=== PATIENT | male | born 1965 | race Caucasian/White ===

== ENCOUNTER 2019-02-19 10:03 | Inpatient (IN) | payer OTHER ==
[~2019-02-19] VITALS: Ht 175.3 cm; Wt 101.7 kg
[2019-02-19 10:09] VITALS: BP 173/100
[2019-02-19] MEDS ORDERED: LISINOPRIL5 MG PO (10:20)
[2019-02-19] MEDS ORDERED: SYNTHROID100 MC1 PO (10:21)
[2019-02-19 10:41] LABS: ABSOLUTE BASOPHILS 0.1 thou/uL (0.0-0.2); ABSOLUTE EOSINOPHILS 0.2 thou/uL (0.0-0.7); ABSOLUTE LYMPHOCYTES 2.2 thou/uL (0.8-5.3); ABSOLUTE MONOCYTES 0.5 thou/uL (0.0-1.2); ABSOLUTE NEUTROPHILS 3.6 thou/uL (1.6-8.1); EOSINOPHILS 2.5 %; HEMOGLOBIN 15.9 gm/dL (14.0-18.0); LYMPHOCYTES 33.1 %; MCH 31.4 pg (26.0-34.0); MCHC 34.6 g/dL (28.0-37.0); MCV 90.9 fL (80.0-100.0); MONOCYTES 8.1 %; NUCLEATED RBCS 0 /100WBC; PLATELET COUNT* 212 thou/uL (150-400); POLYS 55.3 %; RBC 5.07 mil/uL (4.50-6.00); RDW-CV 12.9 % (10.5-14.5); WBC 6.5 thou/uL (4.0-11.0)
[2019-02-19 10:50] LABS: ANION GAP 8 mmol/L (7-16); BUN 14 mg/dL (7-18); CALCIUM 8.9 mg/dL (8.5-10.1); CHLORIDE 104 mmol/L (98-107); CO2 27 mmol/L (21-32); CREATININE 0.9 mg/dL (0.6-1.3); GLUCOSE 121 mg/dL (70-99); POTASSIUM 4.2 mmol/L (3.5-5.1); SODIUM 139 mmol/L (136-145)
[2019-02-19 11:03] LABS: ALKALINE PHOSPHATASE 69 U/L (46-116); LIPASE 115 U/L (73-393); MAGNESIUM 1.9 mg/dL (1.8-2.4); NT-PRO BRAIN NAT PEPTIDE 7 pg/mL (<300); SGOT 30 U/L (15-37); SGPT 58 U/L (30-65); TOTAL BILIRUBIN 0.4 mg/dL (<0.1-1.0); TOTAL PROTEIN 7.8 g/dL (6.4-8.2); TROPONIN-I LEVEL <0.06 ng/mL (<0.06)
[2019-02-19 11:59] VITALS: BP 143/79
[2019-02-19 13:00] VITALS: BP 152/73
[2019-02-19 15:32] VITALS: BP 133/78
--- NOTE | 2019-02-19 18:01 | NUR ---
0ASSUMED PATIENT CARE AT APPROXIMATELY 1200. ASSESSMENT CHARTED COMPLETED. NSR ON MONITOR. VSS. CLWR. HOURLY ROUNDING IN PLACE FOR PATIENT SAFETY.
--- NOTE | 2019-02-19 18:51 | NUR ---
PATIENT LEFT AMA. DOCTOR NOTIFIED. PATIENT EDUCATED ABOUT RISKS OF LEAVING AMA AND VERBALIZED UNDERSTANDING.
--- NOTE | 2019-02-20 10:14 | CON ---
[address] [address] CONSULTATION Name: MIKELREJICARLITOAB Juany Room: [address] IN .R.#: [id number] Admission: 02/19/19 Attend Phys: Carmel Kelley MD Discharge: 02/19/19 Date of : 69 Report #: [id number] THIS REPORT FOR: //name// CC: MD Carmel Holcomb DATE OF SERVICE: 02/19/2019 INDICATION: Back pain, palpitations and dizziness. HISTORY OF PRESENT ILLNESS: The patient is a 53-year-old gentleman with hypertension, mild dyslipidemia and hypothyroidism who was admitted through the Emergency Room this morning with an episode while walking, described as onset of anxiety, followed with pain between the shoulder blades, radiating to his head followed by a feeling of his heart racing and diaphoresis. Symptoms resolved with bending over and taking deep breaths. The whole episode lasted a minute or so. Once the patient had resolution of symptoms, he walked another 50 feet with recurrence of symptoms. He again bent over and did some more deep breathing, at which time his picked him up in the car and brought him into the Emergency Room. He has had 3 or 4 episodes like this in the past 15 years. A recent cardio scan at [facility] was scored as 7, putting him at low risk for future cardiac events in the next 10 years. He is not having elaina chest pain. His EKG was unremarkable. Initial troponin was less than 0.06. At the time of interview, he is symptom free. PAST MEDICAL HISTORY: 1. Hypertension. 2. Hyperlipidemia. 3. Hypothyroidism. PAST SURGICAL HISTORY: None. FAMILY HISTORY: No history of coronary artery disease on the mother's side of the family. The father's side is unknown. SOCIAL HISTORY: The patient is . He does not smoke. He drinks 1-2 drinks a day. CURRENT MEDICATIONS: Thyroid replacement and lisinopril 10 mg daily. ALLERGIES: None. REVIEW OF SYSTEMS: A 14-point review of systems is positive for palpitations, dyspnea and near syncope. He has hypothyroidism. He reports seasonal allergies. He reports significant anxiety. He [place] [address] CONSULTATION Name: AB JONES Room: [address]#: [id number] Admission: 02/19/19 Attend Phys: Carmel Kelley MD Discharge: 02/19/19 Date of : 69 Report #: [id number] visual loss. Otherwise, 14-point review of systems was unremarkable. PHYSICAL EXAMINATION: VITAL SIGNS: Stable, blood pressure 143/79, pulse 66 and regular. GENERAL: This is a pleasant gentleman, in no distress. Mood and affect appropriate. HEENT: Extraocular muscles intact. Mucous membranes are moist. NECK: Shows no jugular venous distention. There are no carotid bruits. CHEST: Reveals clear lung marin. CARDIOVASCULAR: Reveals a regular rhythm without gallop or murmur. ABDOMEN: Reveals normal bowel sounds. The abdomen is soft and nontender. EXTREMITIES: Shows no edema. Peripheral pulses are palpable and 2+. SKIN: Warm and dry. DIAGNOSTIC DATA: A 12-lead EKG shows sinus rhythm without acute ST or T-wave abnormality. Labs are reviewed. Troponin on followup is 0.08. Initial troponin less than 0.06. IMPRESSION AND RECOMMENDATIONS: 1. Atypical symptoms. We will monitor on telemetry to rule out arrhythmia. The patient's second troponin was minimally elevated. We will repeat a third troponin. Further cardiac intervention versus stress testing will be pending those results. The patient is presently stable. I am not adjusting his medications at this time. 2. Hypertension. Continue lisinopril at current dose. 3. History of dyslipidemia. Recommend low dose statin agent in light of coronary calcium score of 7, which would suggest underlying coronary atherosclerosis. 4. Coronary artery disease based on minimally positive calcium score. Presently stable. We would recommend daily aspirin. <ELECTRONICALLY SIGNED> By: Raciel Carranza MD, FACC 02/20/19 1014 [id number] Carranza MD, FACC /nt
--- NOTE | 2019-02-20 10:42 | EKG ---
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[place] : [id number] Requested By: Clarence Lorenzana Order Number: [id number] MD: Raciel Carranza Measurements Intervals [place] Rate: 75 P: 23 NE: 134 QRS: 26 QRSD: 99 T: 8 QT: 374 QTc: 418 Interpretive Statements Sinus rhythm Borderline T abnormalities, inferior leads Baseline wander in lead(s) I,II,aVR No previous ECG available for comparison Electronically Signed On 02-20-2019 10:42:02 CDT by Raciel Carranza [email or web address] <ELECTRONICALLY SIGNED> By: Raciel Carranza MD, [facility] 02/20/19 1042 1008 1008 Raciel Carranza MD, [facility] /EPI
== END 2019-02-19 18:53 | disposition left against medical advice (07) | DRG 313 ==
LOC: M.ERS 10:03 → M.2W 11:16 → M.TBA-ER 11:16 → M.2W 12:09
PROVIDERS: Emergency Medicine Emergency Medical Services; ADMIT Internal Medicine
DX: R07.89 Other chest pain (principal); I10 Essential (primary) hypertension; E03.9 Hypothyroidism, unspecified; E78.5 Hyperlipidemia, unspecified; I25.10 Atherosclerotic heart disease of native coronary artery without angina pectoris; M54.2 Cervicalgia; Z53.21 Procedure and treatment not carried out due to patient leaving prior to being seen by health care provider; R61 Generalized hyperhidrosis; Z79.899 Other long term (current) drug therapy